=== PATIENT | female | born 1960 | race African-American/Black ===

== ENCOUNTER 2021-09-17 19:00 | Emergency (ER) | payer OTHER ==
--- NOTE | 2021-09-17 19:18 | EDPHYS ---
Physician Documentation [facility] Name: Negra Xiong Age: 61 yrs Sex: Female : 1960 Arrival Date: 09/17/2021 Time: 19:05 Bed 3 Private MD: ED Physician Pete Mirza HPI: 09/17 19:13 This 61 yrs old Black Female presents to ER via Unassigned with complaints of Found rn down, CPR. 19:13 Preceding the arrest, the patient was found down. The arrest occurred at home. rn Pre-hospital course: The arrest was not witnessed by others. Bystanders at the scene did not perform CPR. EMS care prior to arrival: oxygen. It is unknown whether or not the patient has had similar symptoms in the past. Per EMS report, patient found down, had not been feeling well for the last couple days, heart rate was in the 20s and was not sure if had a pulse. Patient transported here, no interventions, only bagged and on oxygen without any improvement. Unclear how long patient has been pulseless. Historical: - Allergies: 19:53 Unable to obtain; ss - Home Meds: 19:53 Unable to obtain [Active]; ss - PMHx: 19:53 Unable to Obtain; ss - PSHx: 19:53 Unable to Obtain; ss - Social history:: Smoking status: unknown. - History obtained from: EMS. ROS: 19:13 Unable to obtain ROS due to comatose state. rn Exam: 19:13 Constitutional: Well-developed female, GCS 3, CPR initiated upon arrival Head/Face: rn Normocephalic, atraumatic. Eyes: No signs of ocular trauma ENT: Emesis in oropharynx Cardiovascular: No spontaneous cardiac activity Respiratory: Coarse bilateral breath sounds, no spontaneous breaths Abdomen/GI: Soft and nondistended no sign of trauma Skin: Cool extremities, no cyanosis Neuro: GCS 3 Vital Signs: 18:53 Pulse 0; Resp 16 A; Pulse Ox 35% on BVM; ss 19:04 Pulse 0; Pulse Ox 35% on ETT ambu; ss Procedures: 19:13 Intubation: Ventilated with 100% NRB prior to procedure. O2 saturation prior to deputy attorney general was 50 %. Intubated orally using # 4 Saul blade with 7.5 mm ETT. was successful on first attempt. Cricoid pressure applied during procedure. Tube secured with ETT garcia at right side of mouth measured 23 cm at teeth. Placement verified by CO2 detector with (+) color change, auscultating bilateral breath sounds, O2 saturation after procedure was 60 %. Patient tolerated well. 19:13 CPR: See CPR flow sheet. rn MDM: 19:13 Patient medically screened. rn 19:13 Differential diagnosis: arrythmia, cardiac arrest, respiratory arrest, asphyxiation, rn Aspiration. Data reviewed: vital signs, nurses notes, and as a result, I will. 09/17 20:06 Order name: glucometer results - FOR PT WITH NO ID ss Administered Medications: 18:58 Drug: EPINEPHrine 0.1mg/mL 1:10,000 1 mg Route: IVP; Site: left jugular; ss 19:01 Drug: EPINEPHrine 0.1mg/mL 1:10,000 1 mg Route: IVP; Site: left jugular; ss 19:05 Drug: EPINEPHrine 0.1mg/mL 1:10,000 1 mg Route: IVP; Site: right femoral; ss Disposition: 19:13 . rn Disposition Summary: 09/17/21 19:17 Patient Location: Home rn Pronouncing Physician: Pete Mirza rn Time of : 19:10 09/17/2021 rn Diagnosis - Cardiac arrest, cause unspecified rn Signatures: Dispatcher [employer] EDPete Perez MD MD rn Smirch, Shelby, RN RN ss
--- NOTE | 2021-09-17 22:59 | ER ---
Nurse's Notes [facility] Name: Negra Xiong Age: 61 yrs Sex: Female : 1960 Arrival Date: 09/17/2021 Time: 19:05 Bed 3 Private MD: Diagnosis: Cardiac arrest, cause unspecified Presentation: 09/17 18:53 Chief complaint: EMS states: EMS called to patient's home by family member who stated ss patient was not feeling well for the past few days. Upon arrival to home, EMS noted patient to have agonal respirations and james pallor. Initial heart rate was 25-30, became asystole as soon as she was in the ambulance. NRB \T\ 15L was placed on patient and manual compressions were started. Care prior to arrival: CPR manually performed by EMS. 18:53 Method Of Arrival: EMS: [facility] 18:53 Acuity: JAMAR 1 18:53 Onset of symptoms is unknown. 20:25 Coronavirus screen: difficulty breathing. Ebola Screen: Unable to complete the Ebola 5 screening because: Patient is unresponsive. Initial Sepsis Screen: Does the patient meet any 2 criteria? No. Patient's initial sepsis screen is negative. Does the patient have a suspected source of infection? No. Patient's initial sepsis screen is negative. Risk Assessment: Do you want to hurt yourself or someone else? Unable to obtain. 20:26 Compressions began prior to arrival. 5 Triage Assessment: 20:25 General:. Pain: Unable to use pain scale. Patient is unresponsive. [facility] Historical: - Allergies: 19:53 Unable to obtain; ss - Home Meds: 19:53 Unable to obtain [Active]; ss - PMHx: 19:53 Unable to Obtain; ss - PSHx: 19:53 Unable to Obtain; ss - Social history:: Smoking status: unknown. - History obtained from: EMS. Screenin:24 Abuse screen: unable to assess. Nutritional screening: No deficits noted. Tuberculosis sm5 screening: unable to assess. 20:26 Fall Risk None identified. 5 Assessment: 18:53 CPR assessment: unresponsive, no respiratory effort, Ambu ventilation. Cardiac rhythm ss is asystole. General: Appears ill, Behavior is unresponsive. Neuro: Level of Consciousness is unresponsive. Cardiovascular: Capillary refill is > 3 seconds Pulses are absent in right femoral artery, left femoral artery and left carotid pulse Rhythm is asystole. Respiratory:. Respiratory: Airway Respiratory pattern is symmetrical. GI: Abdomen is flat, non-distended. Derm: Skin is pale. 18:58 Reassessment: Pulse check: No pulse, asystole. CPR resumed. ss 18:58 Reassessment: BGL 307. ss 18:59 Reassessment: Successful intubation. ss 19:00 Reassessment: Pulse check: No pulse, asystole, CPR resumed. ss 19:02 Reassessment: Pulse check: No pulse. Asystole. CPR resumed. ss 19:04 Reassessment: Pulse check: No pulse, PEA, CPR resumed. 19:06 Reassessment: Pulse check: No pulse, Vfib. Shock delivered, CPR resumed. ss 19:08 Reassessment: Pulse check: No pulse, PEA. CPR resumed. Dr. Mirza and Dr. Robbins at bedside with ultrasound machine at bedside to assess cardiac activity. No cardiac activity noted on US. 19:10 Reassessment: Pulse check, No pulse. PEA. Time of called by Dr. Mirza. Vital Signs: 18:53 Pulse 0; Resp 16 A; Pulse Ox 35% on BVM; ss 19:04 Pulse 0; Pulse Ox 35% on ETT ambu; ED Course: 18:58 Inserted saline lock: 20 gauge in left EJ, using aseptic technique. ,using aseptic technique. Insertion by CHAVA Moran. 18:59 Assisted provider with intubation using 7.5 mm ETT via oral route. ET tube secured at ss 24cm at the teeth. Intubated by Pete Mirza MD Placement verified by CO2 detector w/ + color change, auscultating bilateral breath sounds. 19:02 Assisted provider with central line placement. Set up central line tray. Triple lumen ss line placed in right femoral. Line placed by Kika Robbins MD Placement verified by blood return, Dressed with Tape, Tegaderm, Before procedure, did Practitioner(s) obtain informed consent? No. 19:05 Patient arrived in ED. mw2 19:10 Arm band placed on right wrist. ss 19:13 Pete Mirza MD is Attending Physician. rn 19:17 Pete Mirza MD is Pronouncing Provider. rn 19:37 Triage completed. ss 20:26 Side rails up X2. sm5 Administered Medications: 18:58 Drug: EPINEPHrine 0.1mg/mL 1:10,000 1 mg Route: IVP; Site: left jugular; ss 19:01 Drug: EPINEPHrine 0.1mg/mL 1:10,000 1 mg Route: IVP; Site: left jugular; ss 19:05 Drug: EPINEPHrine 0.1mg/mL 1:10,000 1 mg Route: IVP; Site: right femoral; ss Outcome: 19:10 Outcome Patient ss 22:58 Patient left the ED. bb Signatures: Talia Collins RN RN bb Pete Mirza MD MD rn Smirch, Shelby, RN RN Mare Wen [facility] Milagros Rocha RN RN sm5
[2021-09-17 23:25] VITALS: O2SAT 35
== END 2021-09-17 22:58 | disposition expired ==
LOC: ER 19:00
DX: I46.9 Cardiac arrest, cause unspecified (principal)
CPT/HCPCS: 31500; 36415; 82947; 92950; 99285